=== PATIENT | female | born 1965 | race Hispanic/Latino ===

== ENCOUNTER 2019-06-12 13:42 | Emergency (ER) | payer OTHER ==
[~2019-06-12] VITALS: Ht 167.6 cm; Wt 98.4 kg
[~2019-06-12 13:42] MED LIST: AZITHROMYCIN PO; BUTALB-ACETAMI1 EACH; CLARITIN-D 241 EACH PO; IRON 65 MG; MONTELUKAST SOD10 MG; PRO AIR HFA PO; QUINAPRIL HCL20 MG PO; SINGULAR PO; SURFAK240 MG PO; TESSALON PERLE100 MG PO; VICODIN 5-5001 EACH PO
--- OUTSIDE RECORDS SUMMARY | 2019-06-12 13:46 | XMS REPORT | Summary of Care ---
Author Author [facility] Organization [facility] Address Unknown Phone Unavailable Care Team Providers Care Power House Engineer Name Role Phone Ricardo Ellis DO PCP Reason for Referral * Consult, Test & Treat (Routine) Referred By Contact Referred To Contact Status Reason Specialty Diagnoses / Procedures Cedric Chandra MD [facility] [place] [address] [place] [address] [place] [address] Pending Consult, Test, and Physical Diagnoses Treat Medicine and Right knee pain, Rehab unspecified chronicity P rocedures [place] OFFICE OUTPATIENT NEW 45 MINUTES * Radiology Services (Routine) Referred By Contact Referred To Contact Status Reason Specialty Diagnoses / Procedures Cedric Chandra MD [address] [place] [address] General Imaging [address] [place] [phone] Pending Radiology Diagnoses Right knee pain, unspecified chronicity P rocedures XR KNEE RIGHT AP, LAT, OBLIQUE * Radiology Services (Routine) Referred By Contact Referred To Contact Status Reason Specialty Diagnoses / Procedures Cedric Chandra MD [address] [address] General Imaging [address] [place] [phone] Pending Radiology Diagnoses Sacroiliac dysfunction P rocedures XR LUMBAR SPINE 2 VIEWS AP AND LAT * (Routine) Referred By Contact Referred To Contact Status Reason Specialty Diagnoses / Procedures Cedric Chandra MD [address] [facility] [address] [place] [phone] Pending Consult, Test, and Physical Therapy Diagnoses Treat Right knee pain, unspecified chronicity Sacroiliac dysfunction Reason for Visit * Reason Comments Initial Consultation * Consult, Test & Treat (Routine) Referred By Contact Referred To Contact Status Reason Specialty Diagnoses / Procedures Ricardo Ellis, DO [address] [facility] [address] [place] [address] [place] [facility] [address], [place] [address] Authorization Physical Diagnoses Not Needed Medicine and Unilateral primary Rehab osteoarthritis, unspecified knee Pain in right knee Encounter Details Care Team Description Date Type Department Cedric Chandra MD [address] [id number] Initial Consultation 04/01/2019 Office Visit [facility] Physical Medicine & Rehabilitation [address], [place] [address] Allergies Comments Active Allergy Reactions Severity Noted Date Metronidazole 04/01/2019 documented as of this encounter (statuses as of 04/01/2019) Medications End Date Status Medication Sig Dispensed Refills Start Date Active quinapril (ACCUPRIL) 10 Take 10 mg by 0 MG tablet mouth every evening. Active montelukast (SINGULAIR) Take 10 mg by 0 10 MG tablet mouth daily. Active triamterene-hydrochloroth Take 1 Cap by 0 iazide (DYAZIDE) 37.5-25 mouth every MG per capsule morning. Active tramadol (ULTRAM) 50 MG Take 50 mg by 0 tablet mouth every 6 hours as needed for Pain. documented as of this encounter (statuses as of 04/01/2019) Active Problems No known active problemsdocumented as of this encounter (statuses as of 04/01/2019) Social History Date Tobacco Use Types Packs/Day Years Used Never Assessed Sex Assigned at Date Recorded Not on file Industry Job Start Date Occupation Not on file Not on file Not on file Travel End Travel History Travel Start No recent travel history available. documented as of this encounter Last Filed Vital Signs Reading Time Taken Comments Vital Sign 112/75 04/01/2019 9:26 AM CDT Blood Pressure 56 04/01/2019 9:26 AM CDT Pulse - - Temperature - - Respiratory Rate - - Oxygen Saturation - - Inhaled Oxygen Concentration - - Weight - - Height - - Body Mass Index documented in this encounter Progress Notes * Cedric Chandra MD - 04/01/2019 9:00 AM CDT PAIN MEDICINE CONSULT NOTE CONSULT AT THE REQUEST OF: Dr Ellis CHIEF COMPLAINT: Chief Complaint Patient presents with Initial Consultation HISTORY OF PRESENT ILLNESS: Arpita Farley is a 53 y.o. female with a history pain in her right knee. It start ed many years ago. She says that she had seen [facility]. Was asked to have s teroid shots, but she did not want them since she had that before. History of gel injections in her knee from Dr. Brown. It lasted 2 years. The steven n just started back. They worked a lot better than the steroid injections she pearce d in the past. She hates taking medications. Her PCP gave her tramadol. She does not like taking them because it made her sick to her stomach. Got her really de pressed as well. She stopped taking it. Better with sitting and worse with walki ng. Right knee swells most of the time when she is walking. When she stands on h er feet it is even worse. Left knee does not swell She likes going out for a walk. She cant now because of several pain. She is mis erable due to the pain. [facility] told her that she needs a knee replacement. When she walks and limps she starts having back pain. She reports that she has p ain that shoots down from the back to the right leg. It is only when she walks a lot. She does not have any weakness. Sometimes her leg gives out. Epidural Steroid Injections: no Physical Therapy: yes, two years ago and it helped a lot. She did 6-8 weeks of it. It helped her a lot. Drug Therapy: yes Oral Steroids: yes When was last time? Long time ago Anti inflammatories: yes Which ones? Aleve but does not help the pain Pain management: Dr Brown Patient is taking blood thinners: no none Pacemaker/ Defibrillator: no ALLERGIES: Allergies Allergen Reactions Flagyl [Metronidazole] CURRENT MEDICATIONS: Current Outpatient Medications Medication Sig Dispense Refill montelukast (SINGULAIR) 10 MG tablet Take 10 mg by mouth daily. quinapril (ACCUPRIL) 10 MG tablet Take 10 mg by mouth every evening. tramadol (ULTRAM) 50 MG tablet Take 50 mg by mouth every 6 hours as needed f or Pain. triamterene-hydrochlorothiazide (DYAZIDE) 37.5-25 MG per capsule Take 1 Cap by mouth every morning. No current facility-administered medications for this visit. REVIEW OF SYSTEMS: Positive symptoms are checked. General: []Weight gain/loss []Fatigue []Fever []No appetite []Loss of sleep []Night sweats Eyes: []Blurred vision []Double vision []Glaucoma [] Blindness ENT: []Hearing loss []Ear noises []Ear Pain []Mouth sores []Dry mouth []Hoarseness []Nose bleeds []Sore throat Respiratory: []Coughing []Difficulty breathing []Asthma []Sleep Apnea []Cough up blood Heme: [] Anemia [] Bleeding disorder CVS: [] Chest pain [] Irregular heartbeat []Murmurs [] High blood pressure []Blood clots Psychiatric: []Depression []Anxiety [] Addiction [] Memory loss []Thoughts of suicide GI: []Ulcers []Incontinence []Constipation []Diarrhea []Blood in stools []Nausea : []Burning on urination []Incontinence [] Frequent urination []Vaginal/penile discharge MSK: []Broken bones []Joint pain []Muscle pain []Arthritis []Gout []L upus []Scoliosis []Weakness [] Walking difficulty []Frequent falls Neuro: []Difficulty speaking [] Migraines []Seizures [] Numbness [] Headaches []Concussion []Dizziness []Fainting []Stroke Endo: [] Diabetes []Thyroid problems Immune: []Frequent colds []Sinus problems []Allergies Integument: []Rashes []Itching [] Bruising [] Sores [] Slow healing Other: BPI reviewed SOAPP reviewed PAST MEDICAL HISTORY: Unremarkable PAST SURGICAL HISTORY: Tonsilectomy Gallbladder Appendix RTC on the right Heel spurs Hysterectomy Gastric Bypass Bladder lift SOCIAL HISTORY: Social History Socioeconomic History Marital status: Unknown Spouse name: Not on file Number of children: Not on file Years of education: Not on file Highest education level: Not on file Occupational History Not on file Social Needs Financial resource strain: Not on file Food insecurity: Worry: Not on file Inability: Not on file Transportation needs: Medical: Not on file Non-medical: Not on file Tobacco Use Smoking status: Not on file Substance and Sexual Activity Alcohol use: Not on file Drug use: Not on file Sexual activity: Not on file Lifestyle Physical activity: Days per week: Not on file Minutes per session: Not on file Stress: Not on file Relationships Social connections: Talks on phone: Not on file Gets together: Not on file Attends baptist service: Not on file Active member of club or organization: Not on file Attends meetings of clubs or organizations: Not on file Relationship status: Not on file Intimate partner violence: Fear of current or ex partner: Not on file Emotionally abused: Not on file Physically abused: Not on file Forced sexual activity: Not on file Other Topics Concerns: Not on file Social History Narrative Not on file Self Employed. [employer] FAMILY HISTORY: No family history on file. DIAGNOSTIC IMAGING: No imaging available LABORATORY DATA: No results found for: WBC, HGB, HCT, MCV, PLT No results found for: PTT No results found for: INR No results found for: CALCIUM, BUN, CREATININE No results found for: ALT, AST, GGT, ALKPHOS, BILITOT PHYSICAL EXAMINATION There is no height or weight on file to calculate BMI. Vitals: 04/01/19 0926 BP: 112/75 Pulse: 56 GENERAL: Patient sitting in chair. No acute distress. Eyes: Pupils equal round reactive to light. No scleral icterus. Extraocular move ments intact. ENT: Moist mucous membranes. No cervical lymphadenopathy. Trachea midline. Chest: Unlabored respirations on room air. Abdomen: soft and non tender Musculoskeletal: Gait: antalgic, favors the right lower limb Tenderness: right paralumbar, gluteal ROM:normal range of motion SAGNITA: Positive Right full range of motion, no tenderness, palpable spasm or pain on motion. Neurological: Alert and oriented 3. Speech fluent. Integument: no rashes on exposed skin Psychiatric: Mood and affect within normal limits. Right knee effusion. Pes anserine tenderness. Right knee medial bruise Right PSIS mildly tender Strength Testing Right Left Deltoid Biceps Triceps Wrist Flex. Wrist Ext. Can Vacuum Tester Interossei Hip Flexion 5/5 5/5 Knee Ext. 5/5 5/5 Knee Flex Dorsiflexion 5/5 5/5 EHL 5/5 5/5 Plantarflexion 5/5 5/5 DTRs Right Left Biceps Triceps Brachiorad Knee 2+ 2+ Ankle Sensory exam : Sensation intact to light touch. IMPRESSION Arpita Farley is a 53 y.o. female with a chronic history of right knee pain due t o osteoarthritis. History of obesity and status post gastric bypass. She now has right sided sacroiliac joint dysfunction due to her mobility impairment from ri ght knee pain. PLAN 1. Medications: None now 2. Rehabilitation: Physical therapy for the right knee and right SI joint 3. Psychology: None needed at this time 4. Procedural interventions: Would likely benefit from knee injections versus c oolief 5. Opioid Monitoring: None needed at this time - Refer to Dr Kelly for taking over care. - Xray Lumbar and right knee - Consider Viscosupplementation, but await imaging DISPOSITION Follow-up in clinic 4 weeks Time taken was 40 or more minutes with the patient and more than half the time w as spent in counseling and coordination of care. Thank you for this referral. Cedric Chandra MD Pain Medicine Physical Medicine and Rehabilitation [facility] documented in this encounter Plan of Treatment Order Schedule Name Type Priority Associated Diagnoses 1 Occurrences starting 04/01/2019 until 10/31/2019 XR LUMBAR SPINE 2 VIEWS Imaging Routine Sacroiliac dysfunction AP AND LAT 1 Occurrences starting 04/01/2019 until 10/31/2019 XR KNEE RIGHT AP, LAT, Imaging Routine Right knee pain, OBLIQUE unspecified chronicity Order Schedule Name Type Priority Associated Diagnoses Ordered: 04/01/2019 AMB REF TO PT EXTERNAL Outpatient Routine Right knee pain, Referral unspecified chronicity Sacroiliac dysfunction Ordered: 04/01/2019 AMB REF TO PHYSICAL MED Outpatient Routine Right knee pain, REHAB BRAYAN Referral unspecified chronicity Health Maintenance Due Date Last Done Comments COLON CANCER SCREENIN1964 COLONOSCOPY MAMMOGRAM ANNUAL 1964 TETANUS SHOT (ADULT) 1979 HEPATITIS C SCREENING 1982 HIV SCREENING 1982 CERVICAL CANCER SCREENING 1985 3 YEAR FOLLOW UP FLU VACCINE > 6 MONTHS 03/27/2019 documented as of this encounter Results Not on filedocumented in this encounter Visit Diagnoses Diagnosis Right knee pain, unspecified chronicity - Primary Sacroiliac dysfunction Disorders of sacrum documented in this encounter Insurance Type Payer Benefit Subscriber ID Effective Phone Address Plan / Dates Group O [facility] xxxxxxxxxx Effective [address] [place] [address] [facility] HMO for all [address] [place] [address] documented as of this encounter
--- OUTSIDE RECORDS SUMMARY | 2019-06-12 13:46 | XMS REPORT ---
Author Author [facility] Address Unknown Phone Unavailable Care Team Providers Care Service Delivery Director Name Role Phone FERMIN BLEVINS Unavailable Unavailable VITALY RICO Unavailable Unavailable Problems This patient has no known problems. Allergies, Adverse Reactions, Alerts This patient has no known allergies or adverse reactions. Medications This patient has no known medications. Results Test Description Test Time Test Comments Text Results Atomic Results Result Comments MAMMOGRAPHY DIGITAL SCR BILAT 2018-12-09 10:19:00 [place] [address] Patient Name: RC GREEN MR #: [id number] : 1965 Age/Sex: 53/F Req #: [id number] Adm Physician: Ordered by: URI BLEVINS MD Report #: [id number] Location: MAMMO Room/Bed: Procedure: [id number] MG/MAMMOGRAPHY DIGITAL SCR BILAT Exam Date: 12/09/18 Exam Time: 0936 REPORT STATUS: Signed #[id number] - MGSCRBIL #BILATERAL DIGITAL SCREENING MAMMOGRAM WITH CAD: 12/09/2018 CLINICAL: Routine screening. Comparison is made to exams dated: 07/27/2017 mammogram, 05/19/2016 mammogram and 03/21/2016 mammogram - [facility]. Current study contains 4 films. The tissue of both breasts is heterogeneously dense. This may lower the sensitivity of mammography. Current study was also evaluated with a Computer Aided Detection (CAD) system. There are benign calcifications in both breasts. There also is a benign nodule in the right breast. There is a mole marker on the right breast. No significant masses, calcifications, or other findings are seen in either breast. There has been no significant interval change. IMPRESSION: BENIGN There is no mammographic evidence of malignancy. A 1 year screening mammogram is recommended. The patient will be notified by letter of the results. Anna Marie larios/carrie:12/23/2018 07:56:30 Parts Clerk Plant Maintenance: Georgette ARMIJO(Dbebie)(M), [facility] letter sent: Compared to Prior B9 Mammogram BI-RADS: 2 Benign Dictated By: ANNA MARIE MONTANA DO 5 Transcribed By: CARRIE on 12/23/18755 COPY TO: FERMIN BLEVINS MD BONE DXA DUAL ENERGY [place] [address] Patient Name: RC GREEN MR #: [id number] : 1965 Age/Sex: 52/F Req #: [id number] Adm Physician: Ordered by: VITALY RICO MD Report #: [id number] Location: MAMMO Room/Bed: Procedure: [id number] DX/BONE DXA DUAL ENERGY Exam Date: Exam Time: REPORT STATUS: Signed EXAM: DXA BONE DENSITY INDICATIONS: Postmenopausal screening. COMPARISON: None. FINDINGS: Proximal left femur bone mineral density (BMD) (g/cm2): 1.028 Femur T-score (standard deviation relative to young adult mean BMD): 0.1 Femur Z-score (standard deviation relative to age-matched control group): 1 Lumbar bone mineral density (BMD) (g/cm2): 0.98 Lumbar T-score (standard deviation relative to young adult mean BMD): -0.6 Lumbar Z-score (standard deviation relative to age-matched control group): 0.3 CONCLUSION: WHO bone mineral classification: Normal Dictated by: Ibis Leon M.D. on 07/27/2017 at 12:48 Electronically approved by: Ibis Leon M.D. on 07/27/2017 at 12:48 Dictated By: IBIS LEON MD 1248 Transcribed By: FRANCK on 07/27/17 1248 COPY TO: VITALY RICO MD MAMMOGRAPHY DIGITAL SCR BILAT [place] [address] Patient Name: RC GREEN MR #: [id number] : 1965 Age/Sex: 52/F Req #: [id number] Adm Physician: Ordered by: VITALY RICO MD Report #: [id number] Location: MAMMO Room/Bed: Procedure: [id number] MG/MAMMOGRAPHY DIGITAL SCR BILAT Exam Date: 07/27/17 Exam Time: 1020 REPORT STATUS: Signed #[id number] - MGSCRBIL #BILATERAL DIGITAL SCREENING MAMMOGRAM WITH CAD: 07/27/2017 Comparison is made to exams dated: 05/19/2016 mammogram, 03/21/2016 mammogram, 01/12/2015 mammogram and 12/10/2014 mammogram - [facility]. Current study contains 4 films. The tissue of both breasts is heterogeneously dense. This may lower the sensitivity of mammography. Current study was also evaluated with a Computer Aided Detection (CAD) system. There are benign calcifications in both breasts. There also is a benign nodule in the right breast. There is a mole marker on the right breast. No significant masses, calcifications, or other findings are seen in either breast. There has been no significant interval change. IMPRESSION: BENIGN There is no mammographic evidence of malignancy. A 1 year screening mammogram is recommended. The patient will be notified by letter of the results. Anna Marie larios/carrie:08/10/2017 13:13:39 Parts Clerk Plant Maintenance: Georgette ARMIJO(R)(M), [facility] letter sent: Compared to Prior B9 Mammogram BI-RADS: 2 Benign Dictated By: ANNA MARIE MONTANA DO 1313 Transcribed By: CARRIE on 08/10/17 1313 COPY TO: VITALY RICO MD
[2019-06-12] MEDS ORDERED: CYCLOBENZAPRINE HCL 10 MG TAB PO ONE (14:30)
[2019-06-12] MEDS ORDERED: KETOROLAC TROMETHAMINE 60 MG/2 ML VIAL IM ONE (14:30)
--- NOTE | 2019-06-12 14:49 | Diagnostic Imaging Report ---
EXAMINATION: CXR 2 VIEW - HOPD INDICATION: Back pain COMPARISON: None FINDINGS: LINES/TUBES:None LUNGS:The lungs are well-inflated. No focal consolidation or pulmonary edema. PLEURA:No pleural effusion or pneumothorax. MEDIASTINUM:The cardiomediastinal silhouette appears normal in size and shape. BONES/SOFT TISSUES:No acute osseous injury. ABDOMEN:Surgical clips in the left upper abdomen. No free air. IMPRESSION: No focal pneumonia or pulmonary edema. Signed by: Ilan Oneal MD on 06/12/2019 2:46 PM
[2019-06-12] MEDS ORDERED: METHOCARBAMOL750 MG PO (15:18)
[2019-06-12] MEDS ORDERED: CYCLOBENZAPRINE HCL 10 MG TAB ONE (15:19)
[2019-06-12] MEDS ORDERED: KETOROLAC TROMETHAMINE 60 MG/2 ML VIAL ONE (15:19)
[2019-06-12] MEDS ORDERED: NAPROXEN250 MG PO (15:20)
[2019-06-12] MEDS ORDERED: ULTRAM 50MG50 MG PO (16:03)
[2019-06-12] MEDS ORDERED: TRIAMTERENE-HCTZ1 EA PO (16:03)
== END 2019-06-12 15:51 | disposition home or self-care (01) ==
LOC: FSED 13:42
DX: M54.6 Pain in thoracic spine (principal); M62.830 Muscle spasm of back; I10 Essential (primary) hypertension
CPT/HCPCS: 71046; 99283; J1885

== ENCOUNTER 2019-11-21 12:44 | Observation (INO) | payer OTHER ==
[~2019-11-21] VITALS: Ht 167.6 cm; Wt 106.6 kg
[~2019-11-21 12:44] MED LIST changes: +METHOCARBAMOL750 MG PO; +NAPROXEN250 MG PO; +TRIAMTERENE-HCTZ1 EA PO; +ULTRAM 50MG50 MG PO
--- OUTSIDE RECORDS SUMMARY | 2019-11-21 12:48 | XMS REPORT | Summary of Care ---
Author Author [facility] Organization [facility] Address Unknown Phone Unavailable Care Team Providers Care Chair Frame Builder Name Role Phone Ricardo Ellis DO PCP Reason for Referral * (Routine) Referred By Contact Referred To Contact Status Reason Specialty Diagnoses / Procedures Conrad Kelly MD [address] [place] [phone] Pending Consult, Test, and Physical Therapy Diagnoses Treat Primary osteoarthritis of right knee Reason for Visit * Reason Comments Right Knee Pain Encounter Details Care Team Description Date Type Department Conrad Kelly MD [address] [place] [id number] Right Knee Pain 06/24/2019 Office Visit [facility] Medicine [facility] Rehabilitation [address] [place] [address] 10th [address], [place] [address] Allergies Comments Active Allergy Reactions Severity Noted Date Metronidazole 04/01/2019 Other reaction(s): HIVES Sulfamethoxazole Low 07/11/2012 Other reaction(s): HIVES Trimethoprim Low 07/11/2012 documented as of this encounter (statuses as of 06/26/2019) Medications End Date Status Medication Sig Dispensed [...] every 6 hours as needed for Pain. Active cyclobenzaprine 0 10/21/201 (FLEXERIL) 10 MG tablet 9 documented as of this encounter (statuses as of 06/26/2019) Active Problems No known active problemsdocumented as of this encounter (statuses as of 06/26/2019) Immunizations Name Administration Dates Next Due Influenza Quad-PF 09/06/2018 documented as of this encounter Social History Date Tobacco Use Types Packs/Day Years Used Never Smoker Smokeless Tobacco: Never Used Drinks/Week oz/Week Comments Alcohol Use Never Alcohol Habits Answer Date Recorded How often do you have a drink containing alcohol? Never 06/24/2019 How many drinks containing alcohol do you have on Not asked a typical day when you are drinking? How often do you have six or more drinks on one Not asked occasion? Sex Assigned at Date Recorded Not on file Industry Job Start Date Occupation Not on file Not on file Not on file Travel End Travel History Travel Start No recent travel history available. documented as of this encounter Last Filed Vital Signs Reading Time Taken Comments Vital Sign 107/76 06/24/2019 11:53 AM CDT Blood Pressure 83 06/24/2019 11:53 AM CDT Pulse - - Temperature - - Respiratory Rate - - Oxygen Saturation - - Inhaled Oxygen Concentration 100.2 kg (221 lb) 06/24/2019 11:53 AM CDT Weight 167.6 cm (5' 6") 06/24/2019 11:53 AM CDT Height 35.67 06/24/2019 11:53 AM CDT Body Mass Index documented in this encounter Progress Notes * Conrad Kelly MD - 06/24/2019 12:00 PM CDT [facility] KNEE examination Age: 53 Chief Complaint: HPI: (document all categories below) Side: Right Location: Anterior Medial Date of Injury: Chronic Mechanism of Injury: Progression: Worsening VAS Score: 5/10 now 4/10 on average Frequency: Constant Quality: Dull Throbbing Associated Sx: Decreased ROM Swelling Aggravating factors: Walking Stairs Alleviating factors: Rest Medications: See scanned intake form Previous Treatments: Therapy Just completed Interventions (CSI) and Hyalgan injections x 3 many years ago with relief Sports History: See scanned intake form Medications: See scanned intake form Allergies: See scanned intake form No past medical history on file. Past Surgical History: No past surgical history on file. No family history on file. Social History Tobacco Use Smoking status: Never Smoker Smokeless tobacco: Never Used Substance Use Topics Alcohol use: Never Frequency: Never Drug use: Never Work history: Homemaker Current Outpatient Medications Medication Sig Dispense Refill cyclobenzaprine (FLEXERIL) 10 MG tablet montelukast (SINGULAIR) 10 MG tablet Take 10 mg by mouth daily. quinapril (ACCUPRIL) 10 MG tablet Take 10 mg by mouth every evening. tramadol (ULTRAM) 50 MG tablet Take 50 mg by mouth every 6 hours as needed f or Pain. triamterene-hydrochlorothiazide (DYAZIDE) 37.5-25 MG per capsule Take 1 Cap by mouth every morning. No current facility-administered medications for this visit. Allergies: Flagyl [metronidazole]; Sulfamethoxazole; and Trimethoprim PMH:See scanned intake form SH: See scanned intake form Surgical HX See scanned intake form FH See scanned intake form Social HX See scanned intake form ROS: 14 point system reviewed and negative except as mentioned above in HPI Physical Exam: Vitals: Reviewed and stable General: NAD Well developed/nourished Orientation: AOx3 Mood and Affect: Appropriate Gait: Antalgic Inspection / Alignment / ROM: (At least 1 below) (As indicated) ( minimum: all bolded items) STANDING Right Left SITTING/SUPINE Right Left ROM Right Left Genu valgum/varum - - Constitutional laxity - - Knee Extensi on (0) -1 0 Genu recurvatum - - Patellar tracking (J) - - Knee Flexion ( 135) 120 135 Squinting/Outfacing patella - - Crepitus - - Tibial torsion - - Subtalar pronation/supination - - Pes planus/cavus - - Extension lag - - Single leg squat - - Palpation: (All pertinent positives and negatives + effusion: neg, mild, mod, severe) ANTERIOR Right Left MEDIAL / LATERAL Right Left POSTERIOR Right Left Effusion + - Adductor tubercle - - Semimebranosus tendon - - Prepatellar bursa - - Medial joint line - - Semitendinosus t endon - - Medial patellar facets - - MCL - - Biceps femoris tendon - - Medial patellar plica - - Pes anserinus bursa - - Poplitea l fossa - - Lateral patellar facets - - Medial tibial plateau - - Lateral retinaculum - - Quadriceps tendon - - Lateral joint line - - Patellar tendon - - LCL - - Tibial tubercle - - IT band - - Infrapatellar fat pad - - Functional Assessment: (Minimum: all bolded items) ( With any over use injury) LIGAMENT TESTS Right Left MENISCAL / PF TESTS Right Left FLEXIBILITY TESTS Right Left 1A 1A Squat/[place] - - Sweta (ACL) 1A 1A Ena Posterior Body Anterior - - Yolanda (rectus)- measure knee flexion angle in prone + + Popliteal angle (hamstrings) 90/90 Patellar glide Medial lateral 1-2 1-2 1-2 1-2 Patellar tilt - - Patellar apprehension - - Neurologic Exam: (At least 1) (At least 1) (At l east 1) SENSORY/ MOTOR Right Left SKIN Right Left CV EXAM Right Left Light touch sym sym Scars - - Pulses + + Pin prick ( if indcated) sym syn Rashes - - Pitting edema - - Reflexes 2/2 2/2 Lesions - - Cyanosis - - LE strength HF 5/5 KE 5/5 DF 5/5 EHL 5/5 PF 5/5 Gluteus Medius 4/5 Hamstring @90 5/5 @20 5/ HF 5/5 KE 5/5 DF 5/5 EHL 5/5 PF 5/5 Gluteus Medius 4/5 Hamstring @90 5/5 @20 5/ Ulcers - - Lymph nodes - - Imaging Study Results: Impression: Impression: Left medial knee pain, that has been ongoing for many years with suc cessful responses to hyaluronic acid injections Differential Dx: 1) Primary Osteoarthritis: Given medial knee pain, in setting of decreased ROM, suprapatellar swelling, US imaging shows evidence of supra-patellar recess swell ing 2) Left ITB syndrome secondary : Given patient's persistent symptoms over lateal femoral condyle and ITB with pain reproduced with running 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 3) Less Likely LCL injury given mechanism of recurring pain and no laxity on exa m 4) Less Likely meniscal pathology given MR and lack of swelling on exam and subj ective hx 5) No ACL/PCL tear given firm endpoints on exam Plan 1) Diagnostics: None Medical Necessity: 2) Therapy: Has done formal PT, and is still in pain 3) Orthosis:None, may consider custom inserts in future for running. Has good st ability shoe. 4) Medications: None at this time 5) Injections: plan for ultrasound guided injections for hyaluronic acid, given patient's symptoms are still persistent after PT and oral NSAIDs, dietary change s. Will need a hyaluronic acid injection to modulate inflammatory environment. S teroid is not indicated as it will advance disease progression 6) Other: None 7) Follow up: For US guided intra-articular injection Conrad Kelly MD [facility] Crossing Tender Director [facility] Dept of Physical Medicine&Rehabilitation Dept of Orthopedic Surgery documented in this encounter Plan of Treatment Order Schedule Name Type Priority Associated Diagnoses Ordered: 06/24/2019 AMB REF TO PT EXTERNAL Outpatient Routine Primary osteoarthritis of Referral right knee Health Maintenance Due Date Last Done Comments COLON CANCER SCREENIN1964 COLONOSCOPY MAMMOGRAM ANNUAL 1964 TETANUS SHOT (ADULT) 1979 BMI FOLLOW UP PLAN 1982 HEPATITIS C SCREENING 1982 HIV SCREENING 1982 CERVICAL CANCER SCREENING 1985 3 YEAR FOLLOW UP FLU VACCINE > 6 MONTHS 03/27/2019 09/06/2018 documented as of this encounter Results Not on filedocumented in this encounter Visit Diagnoses Diagnosis Primary osteoarthritis of right knee - Primary Primary localized osteoarthrosis, lower leg documented in this encounter Insurance Type Payer Benefit Subscriber ID Effective Phone Address Plan / Dates Group [facility] xxxxxxxxxx Effective [address] PLAN O for all [id number] [place] [address] documented as of this encounter
[2019-11-21] MEDS ORDERED: ASPIRIN 81 MG CHEW TAB PO STA (13:05)
[2019-11-21] MEDS ORDERED: NITROGLYCERIN 2% OINT 1 GM PKT TOP ONE (13:15)
--- NOTE | 2019-11-21 13:24 | Diagnostic Imaging Report ---
EXAMINATION: CXR 2 VIEW - HOPD INDICATION: Chest pain COMPARISON: Chest radiograph of 06/12/2019 FINDINGS: LINES/TUBES:None LUNGS:The lungs are well-inflated. No focal consolidation or pulmonary edema. PLEURA:No pleural effusion or pneumothorax. MEDIASTINUM:The cardiomediastinal silhouette appears normal in size and shape. Specifically, normal aortic contour without mediastinal widening. Atherosclerotic calcifications of the thoracic aorta. BONES/SOFT TISSUES:No acute osseous injury. ABDOMEN:No free air under the diaphragm. Status post cholecystectomy. Surgical clips in the left upper quadrant. IMPRESSION: No acute cardiopulmonary process. Signed by: Ilan Oneal MD on 11/21/2019 1:21 PM
[2019-11-21] MEDS ORDERED: ASPIRIN 81 MG CHEW TAB ONE (13:28)
[2019-11-21] MEDS ORDERED: NITROGLYCERIN 2% OINT 1 GM PKT ONE (13:28)
[2019-11-21] MEDS ORDERED: SODIUM CHLORIDE FLUSH 10 ML SYR INJ PRN (14:00)
[2019-11-21] MEDS ORDERED: ASPIRIN 81 MG CHEW TAB PO ONE (14:00)
--- NOTE | 2019-11-21 14:10 | NUR ---
SPOKE WITH KRISHNA AT [facility] ETA 30 TO 45 MINUTES
[2019-11-21] MEDS ORDERED: ONDANSETRON HCL INJ 2MG/ML 2ML 2 MG/ML VIAL IV PRN (14:45)
[2019-11-21] MEDS ORDERED: METOPROLOL TARTRATE INJ 1 MG/ML VIAL IV PRN (14:45)
[2019-11-21 17:26] VITALS: BP 131/80
[2019-11-21 17:49] VITALS: BP 131/80
[2019-11-21] MEDS: NITROGLYCERIN 2% OINT 1 GM PKT TOP SCH ×2 (18:00→21:58)
--- NOTE | 2019-11-21 18:38 | NUR ---
Received report from free standing ER nurse, Vianey, at [id number]. Patient arrived via EMS on a stretcher at 1544. Patient is AOx3, c/o of 4/10 chest tightness radiating to her right upper arm. Patient's assessment was completed and she was oriented to her room and call light. Patient has no other complaints or issues at this time. Will continue to monitor.
[2019-11-21] MEDS: FAMOTIDINE 20 MG TAB PO SCH (18:50)
[2019-11-21] MEDS ORDERED: LORAZEPAM INJ 2 MG/ML VIAL IV PRN (19:15)
--- NOTE | 2019-11-21 19:20 | NUR ---
Patient received sitting up in bed. AAO x 4. Patient had no complaints of chest pain or discomfort. Respirations even and non-labored. Safety measures in place. Patient instructed to call for assistance when needed. Call light within reach.
[2019-11-21 19:50] LABS: BASOPHILS # (AUTO) 0.1 (0.0-0.1); BASOPHILS % 0.4 % (0.0-1.0); EOSINOPHILS % 0.3 % (0.0-6.0); HEMATOCRIT 34.1 % (34.2-44.1); HEMOGLOBIN 10.9 g/dL (12.0-16.0); LYMPHOCYTES # (AUTO) 2.1 (1.0-3.2); LYMPHOCYTES % 17.1 % (18.0-39.1); MEAN CORPUSCULAR VOLUME 81.2 fL (81-99); MONOCYTES # (AUTO) 0.8 (0.2-0.8); MONOCYTES % 6.3 % (4.4-11.3); NEUTROPHILS # (AUTO) 9.4 (2.1-6.9); NEUTROPHILS % 75.5 % (38.7-80.0); PLATELET COUNT 303 x10e3/uL (140-360); RED CELL DISTRIBUTION WIDTH 13.6 % (11.7-14.4)
[2019-11-21 20:00] VITALS: BP 131/80
[2019-11-21 20:12] LABS: ALANINE AMINOTRANSFERASE 14 IU/L (0-55); ALBUMIN 3.2 g/dL (3.5-5.0); ALBUMIN/GLOBULIN RATIO 1.1 (0.8-2.0); ALKALINE PHOSPHATASE 155 IU/L (40-150); ANION GAP 11.9 mmol/L (8-16); BLOOD UREA NITROGEN 12 mg/dL (7-26); BUN/CREATININE RATIO 16 (6-25); CALCIUM 8.8 mg/dL (8.4-10.2); CARBON DIOXIDE 25 mmol/L (22-29); CHLORIDE 106 mmol/L (98-107); CHOL/HDL RATIO 2.9 (3.0-3.6); CHOLESTEROL 163 MD/DL (0-199); CREATININE, SERUM 0.75 mg/dL (0.57-1.11); EST GLOMERULAR FILTRATION RATE > 60 ML/MIN (60-); GLUCOSE 115 mg/dL (74-118); HDL CHOLESTEROL 56 MG/DL (40-60); LDL CHOLESTEROL 95 MG/DL (60-130); LIPASE 10 U/L (8-78); MAGNESIUM 1.7 MG/DL (1.3-2.1); POTASSIUM 3.9 mmol/L (3.5-5.1); SODIUM 139 mmol/L (136-145); TRIGLYCERIDES 60 MG/DL (0-149)
[2019-11-21 20:32] LABS: THYROID STIMULATING HORMONE 1.433 uIU/mL (0.350-4.940)
[2019-11-21 20:45] LABS: CREATINE KINASE 42 IU/L (29-168)
[2019-11-21] MEDS ORDERED: MONTELUKAST SODIUM 10 MG TAB PO SCH (21:00)
[2019-11-21] MEDS ORDERED: NON-FORMULARY MEDICATION ([Singular] 10 MG) PO SCH (21:00)
[2019-11-21 21:43] VITALS: BP 137/75
[2019-11-21] MEDS: ACETAMINOPHEN 325 MG TAB PO PRN (21:59)
[2019-11-22 01:02] VITALS: BP 119/69
--- NOTE | 2019-11-22 03:15 | NUR ---
Blood specimen sent to lab for analysis of cardiac enzymes.
[2019-11-22 03:56] LABS: CREATINE KINASE 41 IU/L (29-168)
[2019-11-22] MEDS: ACETAMINOPHEN 325 MG TAB PO PRN (04:05)
[2019-11-22 05:17] VITALS: BP 123/73
[2019-11-22 05:40] LABS: BASOPHILS % 0.3 % (0.0-1.0); EOSINOPHILS # (AUTO) 0.2 (0.0-0.4); EOSINOPHILS % 1.8 % (0.0-6.0); HEMATOCRIT 32.5 % (34.2-44.1); HEMOGLOBIN 10.3 g/dL (12.0-16.0); LYMPHOCYTES # (AUTO) 2.9 (1.0-3.2); LYMPHOCYTES % 26.9 % (18.0-39.1); MEAN CORPUSCULAR HGB CONC 31.7 g/dL (31-35); MEAN CORPUSCULAR VOLUME 82.1 fL (81-99); MONOCYTES # (AUTO) 0.8 (0.2-0.8); NEUTROPHILS # (AUTO) 6.9 (2.1-6.9); NEUTROPHILS % 63.6 % (38.7-80.0); PLATELET COUNT 292 x10e3/uL (140-360); RED BLOOD COUNT 3.96 x10e6/uL (3.6-5.1); RED CELL DISTRIBUTION WIDTH 13.5 % (11.7-14.4)
[2019-11-22 06:29] LABS: ANION GAP 10.7 mmol/L (8-16); BLOOD UREA NITROGEN 12 mg/dL (7-26); BUN/CREATININE RATIO 15 (6-25); CARBON DIOXIDE 27 mmol/L (22-29); CHLORIDE 104 mmol/L (98-107); CREATININE, SERUM 0.79 mg/dL (0.57-1.11); EST GLOMERULAR FILTRATION RATE > 60 ML/MIN (60-); GLUCOSE 124 mg/dL (74-118); POTASSIUM 3.7 mmol/L (3.5-5.1); SODIUM 138 mmol/L (136-145)
[2019-11-22 06:44] LABS: CREATINE KINASE 39 IU/L (29-168)
[2019-11-22 07:55] VITALS: BP 120/69
[2019-11-22] MEDS ORDERED: QUINAPRIL HCL 10 MG PO SCH (09:00)
[2019-11-22] MEDS ORDERED: QUINAPRIL HCL 5 MG PO SCH (09:00)
[2019-11-22] MEDS ORDERED: ASPIRIN 81 MG ENTERIC COATED PO SCH (09:00)
[2019-11-22] MEDS: NITROGLYCERIN 2% OINT 1 GM PKT TOP SCH ×2 (09:22→13:56)
[2019-11-22] MEDS: FAMOTIDINE 20 MG TAB PO SCH ×2 (09:22→16:50)
[2019-11-22] MEDS ORDERED: LORAZEPAM 0.5 MG TAB PO PRN ×3 (10:15→18:15)
[2019-11-22] MEDS ORDERED: MECLIZINE HCL 12.5 MG TAB PO PRN (10:15)
[2019-11-22] MEDS ORDERED: ATIVAN0.5 MG PO (10:19)
[2019-11-22] MEDS ORDERED: Meclizine Hcl PO (10:19)
[2019-11-22] MEDS ORDERED: ASPIRIN EC81 MG PO (10:19)
[2019-11-22] MEDS ORDERED: FAMOTIDINE20 MG PO (10:19)
[2019-11-22 10:55] VITALS: BP 120/69
[2019-11-22 11:56] VITALS: BP 158/85
--- NOTE | 2019-11-22 12:49 | Diagnostic Imaging Report ---
Exam: Head CT without contrast History: Dizziness, headache Comparison studies: None Technique: Axial images were obtained from the skull base to the vertex. Coronal and sagittal images reconstructed from the axial data. Dose modulation, iterative reconstruction, and/or weight based adjustment of the mA/kV was utilized to reduce the radiation dose to as low as reasonably achievable. Radiation dose: Total DLP: 921.4 mGy*cm. Estimated effective dose: DLP x 0.015 Intravenous contrast: None Findings: Scalp: No abnormalities. Bones: No fractures, blastic or lytic lesions. Brain sulci: Appropriate for age. Ventricles: Normal in size and configuration. No hydrocephalus. Extra-axial spaces: No masses, no fluid collection. Parenchyma: No abnormal densities. No masses, acute hemorrhage, acute or chronic vascular insults. Sellar/suprasellar region: No abnormalities. Craniocervical junction: Patent foramen magnum. No Chiari one malformation. Included paranasal sinuses: Clear. Middle ear and included mastoid cavities: Clear. Incidental findings: Atherosclerotic calcifications in the carotid siphons. IMPRESSION: No acute abnormalities. Signed by: Dr. Cm Colvin M.D. on 11/22/2019 12:45 PM
[2019-11-22 16:11] VITALS: BP 162/92
--- NOTE | 2019-11-22 18:08 | Progress Note ---
DATE: 11/22/2019 Pulmonary Critical Care Progress Note CHIEF COMPLAINT: Chest pain. HISTORY OF PRESENT ILLNESS: The patient is a 54-year-old woman. She has a history of hypertension. She denies any prior asthma or heart history. She apparently had some chest discomfort when she awoke in the middle of the night. It was a dullness that has persisted a little bit, but then resolved. There was no associated nausea or vomiting. She did not have difficulty breathing. PAST MEDICAL HISTORY: 1. Hypertension. 2. No prior history of asthma or respiratory problems. 3. No prior history of diabetes. PAST SURGICAL HISTORY: 1. Status post rotator cuff surgery. 2. Status post tonsillectomy. 3. Status post cholecystectomy. 4. Status post hysterectomy. FAMILY HISTORY: The patient has a history of diabetes in the family as well as CVA. SOCIAL HISTORY: The patient is not smoking or drinking. ALLERGIES: THERE IS A HISTORY OF ALLERGY TO BACTRIM. REVIEW OF SYSTEMS: There is no fever. There is no headache. She is not having any neck pain. There is no chest pain. There is no cough. There is no wheezing. The abdomen is not painful. There is no nausea or vomiting. There is no leg edema. PHYSICAL EXAMINATION: VITAL SIGNS: The patient is afebrile. The vital signs are stable. HEENT: Shows no facial swelling or erythema. CARDIAC: Reveals regular rate and rhythm with normal S1, S2. LUNGS: Auscultation of lungs shows clear breath sounds bilaterally. There is no wheezing. ABDOMEN: Soft, nontender. There is no rebound or guarding. EXTREMITIES: Show no leg edema or calf tenderness. There is no cyanosis or clubbing. SKIN: Shows no rashes. NEUROLOGICAL: Shows no focal abnormalities. LABORATORY DATA: White blood cell count is 10.7 and hemoglobin is 10.3. The platelet count is 292. BUN to creatinine ratio is normal. The other electrolytes are within normal limits. Chest x-ray shows no active disease. CT scan of the brain shows no acute abnormalities. Echocardiogram shows some concentric left ventricular hypertrophy, but no valvular abnormalities. There is no pericardial effusion. IMPRESSION: 1. Atypical chest pain. 2. Hypertension. 3. Anemia, unspecified. PLAN: 1. The patient will be discharged home. 2. She will continue current antihypertensive medications. 3. The patient will follow up with Dr. Ricardo Ellis. MD LONNY Pichardo/MORRO /[id number]
--- NOTE | 2019-11-24 05:43 | Discharge Summary ---
ADMISSION DIAGNOSES: Chest pain, hypertension, anxiety, and dizziness. DISCHARGE DIAGNOSES: Chest pain, hypertension, anxiety, and dizziness, rule out myocardial infarction, rule out cerebrovascular accident. HISTORY: Hypertension, vertigo, and seasonal allergies. SURGICAL HISTORY: Right rotator cuff repair, bladder lift, gastric bypass, tonsillectomy, appendectomy, cholecystectomy, hysterectomy and bilateral heel spur surgery. FAMILY HISTORY: The patient's mom, sisters, aunt and uncle have diabetes. The patient's mom had a stroke. SOCIAL HISTORY: Noncontributory. HOSPITAL COURSE: 54-year-old female admits to complaints of left-sided chest aching that began Sunday. Chest pain radiated to her left upper arm. She had associated intermittent dizziness when changing position. She denies nausea, vomiting, diarrhea, or fever. She admits to not sleeping well and thinks she might have anxiety. On admission, troponins were negative x3. Chest x-ray was negative. EKG was normal sinus. Echo showed an EF of 60%. Bilateral carotid Doppler was negative. CT of the brain was negative. Lipid panel was within normal limits as well as A1c. The patient was started on aspirin daily and lorazepam p.r.n. as well as meclizine p.r.n., which the patient says that helped her in the past. She will discharge home with new prescriptions for aspirin, Pepcid, lorazepam and meclizine. She will follow up with primary care in 1 to 2 weeks. The patient understands discharge instructions and agrees to plan. Vital signs are stable, patient is afebrile. Dictated by Luisa Dunn NP MD EUGENE Alexis/MODL /[id number]
== END 2019-11-22 19:24 | disposition home or self-care (01) ==
LOC: FSED 12:44 → ERHOLD 13:55 → MED/SURG2 15:51
PROVIDERS: ADMIT Internal Medicine; ATTEND Internal Medicine
DX: R07.2 Precordial pain (principal); I10 Essential (primary) hypertension; F41.9 Anxiety disorder, unspecified; R42 Dizziness and giddiness; E66.9 Obesity, unspecified; Z68.37 Body mass index [BMI] 37.0-37.9, adult; Z90.49 Acquired absence of other specified parts of digestive tract; Z98.84 Bariatric surgery status; Z88.3 Allergy status to other anti-infective agents; Z88.2 Allergy status to sulfonamides; Z82.49 Family history of ischemic heart disease and other diseases of the circulatory system; Z88.8 Allergy status to other drugs, medicaments and biological substances; Z83.3 Family history of diabetes mellitus; Z82.3 Family history of stroke; D64.9 Anemia, unspecified
CPT/HCPCS: 36415; 70450; 71046; 80048 ×2; 80053; 80061; 81003; 82550 ×2; 82553 ×2; 83036; 83690; 83735; 84443; 84484 ×2; 85025 ×2; 93005; 93306; 93880; 97116; 97162; 97530; 99284; G0378 ×2

== ENCOUNTER → 2020-06-10 | Outpatient (CLI) | payer OTHER ==
[~2020-06-10] MED LIST changes: +ASPIRIN EC81 MG PO; +ATIVAN0.5 MG PO; +FAMOTIDINE20 MG PO; +Meclizine Hcl PO
== END ==
LOC: MAMMO 09:51
PROVIDERS: ATTEND Student in an Organized Health Care Education/Training Program
DX: Z12.31 Encounter for screening mammogram for malignant neoplasm of breast (principal)
CPT/HCPCS: 77067

== ENCOUNTER → 2020-07-02 | Outpatient (CLI) | payer OTHER ==
--- NOTE | 2020-07-02 16:55 | Diagnostic Imaging Report ---
#[id number] - [id number] #UNILATERAL RIGHT DIGITAL DIAGNOSTIC MAMMOGRAM WITH CAD: 07/02/2020 Comparison is made to exams dated: 06/10/2020 mammogram and 12/09/2018 mammogram - [facility]. The tissue of the right breast is heterogeneously dense. This may lower the sensitivity of mammography. Current study was also evaluated with a Computer Aided Detection (CAD) system. There is a 1 cm focal asymmetry with punctate calcifications in the right breast at 11 o'clock middle depth. No other significant masses or calcifications are seen in the breast. IMPRESSION: SUSPICIOUS OF MALIGNANCY The 1 cm focal asymmetry in the right breast is suspicious of malignancy. Ultrasound performed the same day does not show a sonographically visible correlating abnormality. A stereotactic biopsy is recommended. This procedure is not performed at [facility]. A referral to a diagnostic breast imaging center is recommended. NATALIO MAYERS M.D. kw/:07/02/2020 16:05:43 Lift Mechanic: Georgette ARMIJO(Debbie)([place]), [facility] letter sent: Biopsy Required Mammogram BI-RADS: 4 Suspicious abnormality
--- NOTE | 2020-07-02 16:55 | Diagnostic Imaging Report ---
#[id number] - USBRELIMRT ULTRASOUND OF THE RIGHT BREAST : 07/02/2020 Comparison is made to exams dated: 07/02/2020 mammogram and 06/10/2020 mammogram - [facility]. Color flow and real-time ultrasound were performed on the right breast. Singer scale images of the real-time examination were reviewed. No abnormalities were seen sonographically in the right breast or the right axilla. IMPRESSION: NEGATIVE There is no sonographic evidence of malignancy. Follow-up with ACR/ACS guidelines. NATALIO chand/penrad:07/02/2020 16:06:11 Senior Ios Software Engineer: EDDY THAO RDIN, [facility] Ultrasound BI-RADS: 1 Negative
== END ==
LOC: MAMMO 09:38
PROVIDERS: ATTEND Student in an Organized Health Care Education/Training Program
DX: N64.89 Other specified disorders of breast (principal)

== ENCOUNTER 2021-12-29 20:36 | Emergency (ER) | payer OTHER ==
[~2021-12-29] VITALS: Ht 167.6 cm; Wt 114.3 kg
[2021-12-29] MEDS ORDERED: MECLIZINE HCL12.5 MG PO (21:25)
[2021-12-29] MEDS ORDERED: MECLIZINE HCL 12.5 MG TAB PO SCH (21:30)
[2021-12-29 21:35] VITALS: BP 178/88
== END 2021-12-29 21:40 | disposition home or self-care (01) ==
LOC: FSED 20:56
DX: R42 Dizziness and giddiness (principal); I10 Essential (primary) hypertension; M54.9 Dorsalgia, unspecified; G89.29 Other chronic pain
CPT/HCPCS: 99283; J8597

== ENCOUNTER 2023-01-06 13:40 | Emergency (ER) | payer OTHER ==
[~2023-01-06] VITALS: Ht 167.6 cm; Wt 114.3 kg
[~2023-01-06 13:40] MED LIST changes: +MECLIZINE HCL12.5 MG PO
[2023-01-06 13:45] VITALS: O2SAT 99
[2023-01-06 16:31] LABS: CLARITY,URINE CLEAR (CLEAR); COLOR,URINE YELLOW (YELLOW); KETONES,URINE NEGATIVE (NEGATIVE); LEUKOCYTE ESTERASE ,URINE NEGATIVE (NEGATIVE); NITRITE,URINE NEGATIVE (NEGATIVE); PROTEIN,URINE DIPSTICK NEGATIVE (NEGATIVE); URINE UROBILINOGEN 0.2 mg/dL (0.2 - 1)
[2023-01-06 16:35] LABS: BACTERIA,URINE RARE /HPF; EPITHELIAL CELLS,URINE RARE /LPF; RBC,URINE 0-5 /HPF (0-5); WBC,URINE (MAN) 0-5 /HPF (0-5)
== END 2023-01-06 17:04 | disposition home or self-care (01) ==
LOC: ER 13:48
DX: I10 Essential (primary) hypertension (principal); R42 Dizziness and giddiness; M54.9 Dorsalgia, unspecified; G89.29 Other chronic pain
CPT/HCPCS: 81001; 87086; 99282